=== PATIENT | male | born 1960 | race Caucasian/White ===

== ENCOUNTER 2016-11-04 06:13 | Day surgery (SDC) | payer OTHER ==
[2016-11-04 07:02] LABS: EOSINOPHIL 10.9 % (0-4.5); MCH 30.8 pg (25.7-33.7); MCHC 34.2 g/dl (32.0-35.9); MEAN PLT VOLUME 9.4 fl (7.5-11.1); NEUTROPHILS 34.7 % (42.8-82.8); PLATELET COUNT 155 K/MM3 (134-434); RDW 12.7 % (11.9-15.9); WHITE BLOOD COUNT 6.1 K/mm3 (4.0-10.0)
[2016-11-04] MEDS ORDERED: SUCCINYLCHOLINE CHLORIDE 200 MG/10 ML VIAL ONE (07:53)
[2016-11-04] MEDS ORDERED: MIDAZOLAM HCL 2 MG/2 ML SINGLE DOSE VIAL ONE (07:53)
[2016-11-04] MEDS ORDERED: PROPOFOL 20 ML ONE (08:43)
[2016-11-04] MEDS ORDERED: LIDOCAINE HCL/PF 2% SDV 5ML VIAL ONE (08:44)
[2016-11-04] MEDS ORDERED: ceFAZolin SODIUM 1 GM VIAL ONE (09:02)
[2016-11-04] MEDS ORDERED: GENTAMICIN SO4 80 MG/2 ML VIAL ONE (09:03)
--- NOTE | 2016-11-04 09:44 | OP ---
Operative Note - Note: Operative Date: 11/04/16 Pre-Operative Diagnosis: bladder tumor Operation: transurethral resection of bladder tumor and transurethral vaporization of bladder tumor Findings: tumor and dyspastic area greater than [id number] area Post-Operative Diagnosis: Same as Pre-op Surgeon: Duong Kirkpatrick Anesthesia: General Specimens Removed: bladder tumor Estimated Blood Loss (mls): 10 Drains & Tubes with Location: [address] Operative Report Dictated: Yes
[2016-11-04] MEDS ORDERED: PROMETHAZINE HCL 25 MG/1 ML VIAL IVPUSH PRN (09:58)
[2016-11-04] MEDS ORDERED: oxyCODONE HCL 5 MG TABLET PO PRN (09:58)
[2016-11-04] MEDS ORDERED: ONDANSETRON 4 MG/2 ML VIAL IVPUSH PRN (09:58)
[2016-11-04] MEDS ORDERED: LACTATED RINGERS SOLUTION 1,000 ML IV SCH (10:00)
[2016-11-04] MEDS ORDERED: hydrALAZINE HCL 20 MG/ML VIAL ONE (10:37)
[2016-11-04] MEDS ORDERED: hydrALAZINE HCL 20 MG/ML VIAL IVPUSH ONE (11:07)
[2016-11-04 11:48] VITALS: TEMP 97.8
[2016-11-04 13:47] VITALS: BP 138/84; PULSE 84
--- NOTE | 2016-11-04 22:54 | OP ---
DATE OF OPERATION: 11/04/2016 PREOPERATIVE DIAGNOSIS: Bladder tumor. POSTOPERATIVE DIAGNOSIS: Bladder tumor. PROCEDURE: Transurethral resection and vaporization of bladder tumor. ATTENDING SURGEON: Aspen Kirkpatrick M.D. ANESTHESIA: General. DESCRIPTION OF PROCEDURE: The patient is a very pleasant 55-year-old gentleman who presented with gross hematuria in the office setting. Cystoscopy at that time showed a bulky bladder tumor involving the posterior wall and left lateral wall of the bladder. The measurements of the tumor were 10 x 10 cm. Significant dysplasia was noted surrounding the primary tumor. The patient was informed of the risks and benefits of the procedure. The patient was given Ancef and gentamicin preoperatively for surgical prophylaxis. Patient was also given general anesthesia and placed in dorsal lithotomy position. He was prepped and draped in the usual sterile manner. Cystoscopy revealed the tumor as described on initial presentation. Resection of the bladder tumor was performed with the resection to the level of the muscle layer of the bladder. At this point, an obturator reflex was noted. It was decided to vaporize the residual tumor and dysplasia surrounding the tumor. Vaporization utilizing the bipolar system was performed. Vaporization of the transitional cell layer to the level of the deep muscle was performed extending from the posterior bladder and the left lateral wall. The margins were above the left ureteral orifice to the dome of the bladder distally and proximally involving the lateral wall to the dome and the posterior wall to the midline. Excellent hemostasis was obtained. The area involved was roughly 10 x 10 cm. No complications noted. The patient tolerated the procedure very well. The abdomen was soft at the end of the procedure. There was no indication of perforation of the bladder. All bladder tumor fragments were evacuated utilizing the . The patient tolerated the procedure very well. DISPOSITION: Disposition of the patient to the recovery room with 24 Polish catheter left in straight drainage. Patient will be observed for possible discharge home. ASPEN BURKS M.D. /[id number]
--- NOTE | 2016-11-06 11:21 | PATH ---
Surgical Pathology Report Patient Name: TASNEEM CODY [facility]. Rec. 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 LAMINA PROPRIA INVASION: NOT IDENTIFIED. MUSCULARIS PROPRIA: NOT PRESENT. CARCINOMA IN SITU (CIS): NOT IDENTIFIED. Electronically Signed Riley Mosleey M.D. Gross Description Received in formalin labeled "bladder tumor" is a 2.0 x 1.2 x 0.3 cm aggregate of pink-caldwell soft tissue fragments. The formalin is filtered and the specimen is entirely submitted in one cassette. /11/04/2016 saudi11/04/2016
== END 2016-11-04 13:10 | disposition home or self-care (01) ==
LOC: JASU-SURG 06:13
PROVIDERS: ATTEND Urology
PROC: 0TBB8ZX Excision of Bladder, Via Natural or Artificial Opening Endoscopic, Diagnostic (ICD-10-PCS; principal; 2016-11-04 08:00)
DX: C67.9 Malignant neoplasm of bladder, unspecified (principal)
CPT/HCPCS: 36415; 85025; 88307-TC; 94760

== ENCOUNTER → 2016-11-04 | Emergency (ER) | payer OTHER ==
[~2016-11-04] MED LIST: IBUPROFEN 600 MG TABLET (FP) PO ONE; SODIUM CHLORIDE 1,000 ML IV STA
[2016-11-04 13:51] VITALS: TEMP 97.5; BMI 29.5
--- NOTE | 2016-11-04 13:53 | PDOC ---
History of Present Illness - General History Source: Patient Exam Limitations: No Limitations - History of Present Illness Initial Comments: 11/04/16 14:41 The patient is a 55 year old male, with a significant past medical history of bladder CA, not on chemotherapy, who presents to the emergency department after a rapid response was called after he was leaving the hospital today. The patient while in the hospital underwent an elective TURP procedure today by his urologist. The patient was in a wheelchair was The patient denies chest pain, shortness of breath, headache and dizziness. Denies fever, chills, nausea, vomit, diarrhea and constipation. Allergies: Shellfish Past surgical history: None Social history: Marijuana use. No alcohol or drug use reported Urologist - Dr. Lopez. The patient was wheelchair to his car and outdoors as he stood up, he felt lightheaded and dizzy and nearly syncopized. <Rigo Ji - Last Filed: 11/04/16 14:48> - General History Source: Patient Exam Limitations: No Limitations <Heath Mcdermott - Last Filed: 11/04/16 14:51> - General Stated Complaint: RAPID RESPONSE Time Seen by Provider: 11/04/16 13:29 Past History <Rigo Ji - Last Filed: 11/04/16 14:48> - Past Medical History Anemia: No Asthma: No Cancer: Yes (Bladder) Cardiac Disorders: No CVA: No COPD: No CHF: No Dementia: No Diabetes: No GI Disorders: No Disorders: No HTN: No Hypercholesterolemia: No Liver Disease: No Seizures: No Thyroid Disease: No - Surgical History Abdominal Surgery: No Appendectomy: No Cardiac Surgery: No Cholecystectomy: No Lung Surgery: No Neurologic Surgery: No - Immunization History Immunization Up to Date: Yes - Psycho/Social/Smoking Cessation Hx Suicidal Ideation: No Smoking History: Never smoked Hx Alcohol Use: No Drug/Substance Use Hx: No Substance Use Type: Marijuana Hx Substance Use Treatment: No ("POT RARELY) <Heath Mcdermott - Last Filed: 11/04/16 14:51> - Past Medical History Allergies/Adverse Reactions: Allergies Allergy/AdvReac Type Severity Reaction Status Date / Time shellfish derived Allergy Verified 11/04/16 10:02 Home Medications: Ambulatory Orders NK [No Known Home Medication] 10/31/16 Review of Systems - Review of Systems Able to Perform ROS?: Yes Comments:: 11/04/16 14:45 GENERAL/CONSTITUTIONAL: No fever or chills. No weakness. HEAD, EYES, EARS, NOSE AND THROAT: No change in vision. No ear pain or discharge. No sore throat. CARDIOVASCULAR: No chest pain or shortness of breath RESPIRATORY: No cough, wheezing, or hemoptysis. GASTROINTESTINAL: No nausea, vomiting, diarrhea or constipation. GENITOURINARY: No dysuria, frequency, or change in urination. MUSCULOSKELETAL: No joint or muscle swelling or pain. No neck or back pain. SKIN: No rash NEUROLOGIC: (+) No headache, vertigo, loss of consciousness, or change in strength/sensation. ENDOCRINE: No increased thirst. No abnormal weight change HEMATOLOGIC/LYMPHATIC: No anemia, easy bleeding, or history of blood clots. ALLERGIC/IMMUNOLOGIC: No hives or skin allergy. <Rigo Ji - Last Filed: 11/04/16 14:48> *Physical Exam - Vital Signs Last Vital Signs Temp Pulse Resp BP Pulse Ox 97.5 F L 78 20 124/84 100 11/04/16 13:48 11/04/16 14:20 11/04/16 14:20 11/04/16 14:20 11/04/16 14:20 - Physical Exam Comments: 11/04/16 14:48 GENERAL: Awake, alert, and fully oriented, in no acute distress HEAD: No signs of trauma, normocephalic, atraumatic EYES: PERRLA, EOMI, sclera anicteric, conjunctiva clear ENT: Auricles normal inspection, hearing grossly normal, nares patent, oropharynx clear without exudates. Moist mucosa NECK: Normal ROM, supple, no lymphadenopathy, JVD, or masses LUNGS: No distress, speaks full sentences, clear to auscultation bilaterally HEART: Regular rate and rhythm, normal S1 and S2, no murmurs, rubs or gallops, peripheral pulses normal and equal bilaterally. ABDOMEN: Soft, nontender, normoactive bowel sounds. No guarding, no rebound. No masses EXTREMITIES: Normal inspection, Normal range of motion, no edema. No clubbing or cyanosis. NEUROLOGICAL: Cranial nerves II through XII grossly intact. Normal speech, normal gait, no focal sensorimotor deficits SKIN: Warm, Dry, normal turgor, no rashes or lesions noted. <Rigo Ji - Last Filed: 11/04/16 14:48> Heart Score/ECG Review #1 ECG reviewed & interpreted by me at: 13:45 11/04/16 14:30 NSR 78, TWI III, avF, no std/jeff, normal axis, normal intervals, QTC 440 msec <Heath Mcdermott - Last Filed: 11/04/16 14:51> ED Treatment Course - LABORATORY CBC & Chemistry Diagram: 11/04/16 13:39 11/04/16 13:39 - ADDITIONAL ORDERS Additional order review: Laboratory Results 11/04/16 13:39 Sodium 141 Potassium 3.7 Chloride 105 Carbon Dioxide 27 Anion Gap 9 BUN 9 Creatinine 1.0 Creat Clearance w eGFR > 60 Random Glucose 122 H Calcium 8.6 Total Bilirubin 0.6 AST 16 ALT 20 Alkaline Phosphatase 79 Creatine Kinase 140 Troponin I < 0.02 Total Protein 7.1 Albumin 4.0 11/04/16 13:39 RBC 4.88 MCV 89.7 MCHC 34.2 RDW 12.5 MPV 9.1 Neutrophils % 65.5 D Lymphocytes % 23.0 D Monocytes % 8.9 Eosinophils % 1.8 D Basophils % 0.8 - Medications Given in the ED: ED Medications Discontinued Medications Generic Name Dose Route Start Last Admin Trade Name Freq PRN Reason Stop Dose Admin Sodium Chloride 1,000 mls @ 1,000 mls/hr 11/04/16 13:31 11/04/16 13:38 Normal Saline - IV 11/04/16 14:30 1,000 mls/hr ASDIR STA Administration <Rigo Ji - Last Filed: 11/04/16 14:48> - LABORATORY CBC & Chemistry Diagram: 11/04/16 13:39 11/04/16 13:39 <Heath Mcdermott - Last Filed: 11/04/16 14:51> Medical Decision Making - Medical Decision Making 11/04/16 13:49 A portion of this note was documented by scribe services under my direction. I have reviewed the details of the note, within reason, and agree with the documentation with the following case summary and management plan written by me. Patient treated in the ED. Nursing notes are reviewed and incorporated into the medical decision-making. Vital signs reviewed. Peripheral IV access obtained by the nurse, laboratory studies are drawn and sent, reviewed and interpreted by myself. Vital Signs Temp Pulse Resp BP Pulse Ox 97.5 F L 78 20 124/84 100 11/04/16 13:48 11/04/16 14:20 11/04/16 14:20 11/04/16 14:20 11/04/16 14:20 55-year-old male with history of bladder CA, not on chemotherapy brought in as a rapid response. The patient underwent elective TURP procedure today by Dr. Deborah Solomon. The patient had a transient episode of hypertension which was given reportedly IV hydralazine and improved. Patient was placed in PACU and patient felt otherwise well. He was observed for approximately an hour and half to 2 hours. The patient was wheelchair to his car and outdoors as he stood up, he felt lightheaded and dizzy and nearly syncopized. Denies syncope, chest pain, short of breath. I suspect patient likely had either vasovagal or orthostatic near syncope. EKG is reassuring. We'll check labs give IV fluids. If workup is negative, will discharge home. Patient's doctor Kaya was made aware. 11/04/16 14:49 CBC, BMP 11/04/16 13:39 11/04/16 13:39 CMP Sodium 141 mmol/L (136-145) 11/04/16 13:39 Potassium 3.7 mmol/L (3.5-5.1) 11/04/16 13:39 Chloride 105 mmol/L (98-107) 11/04/16 13:39 Carbon Dioxide 27 mmol/L (21-32) 11/04/16 13:39 Anion Gap 9 (8-16) 11/04/16 13:39 BUN 9 mg/dL (7-18) 11/04/16 13:39 Creatinine 1.0 mg/dL (0.7-1.3) 11/04/16 13:39 Creat Clearance w eGFR > 60 (>60) 11/04/16 13:39 Random Glucose 122 mg/dL (74-106) H 11/04/16 13:39 Calcium 8.6 mg/dL (8.5-10.1) 11/04/16 13:39 Total Bilirubin 0.6 mg/dL (0.2-1.0) 11/04/16 13:39 AST 16 U/L (15-37) 11/04/16 13:39 ALT 20 U/L (12-78) 11/04/16 13:39 Alkaline Phosphatase 79 U/L (45-117) 11/04/16 13:39 Creatine Kinase 140 IU/L (39-308) 11/04/16 13:39 Troponin I < 0.02 ng/ml (0.00-0.05) 11/04/16 13:39 Total Protein 7.1 g/dl (6.4-8.2) 11/04/16 13:39 Albumin 4.0 g/dl (3.4-5.0) 11/04/16 13:39 Patient is observed and feels otherwise very well. Patient be taken home by family. I discussed the physical exam findings, ancillary test results and final diagnoses with the patient. I answered all of the patient's questions. The patient was satisfied with the care received and felt comfortable with the discharge plan and treatment plan. The patient will call their primary care physician within 24 hours to arrange follow-up and will return to the Emergency Department with any new, persistant or worsening symptoms. <Heath Mcdermott - Last Filed: 11/04/16 14:51> *DC/Admit/Observation/Transfer - Attestations Scribe Attestion: 11/04/16 14:48 Documentation prepared by Rigo Ji, acting as medical massage therapist for Heath Mcdermott MD <Rigo Ji - Last Filed: 11/04/16 14:48> - Discharge Dispostion Admit: No <Heath Mcdermott - Last Filed: 11/04/16 14:51> Diagnosis at time of Disposition: Near syncope - Discharge Dispostion Disposition: HOME Condition at time of disposition: Good - Patient Instructions Additional Instructions: Drink plenty of fluids and rest. Your workup is unremarkable. Follow up with your doctor.
[2016-11-04 13:57] LABS: BASOPHIL 0.8 % (0-2.0); EOSINOPHIL 1.8 % (0-4.5); MCH 30.7 pg (25.7-33.7); MCHC 34.2 g/dl (32.0-35.9); MEAN CELL VOLUME 89.7 fl (80-96); MEAN PLT VOLUME 9.1 fl (7.5-11.1); NEUTROPHILS 65.5 % (42.8-82.8); PLATELET COUNT 162 K/MM3 (134-434); RDW 12.5 % (11.9-15.9)
--- NOTE | 2016-11-04 13:58 | EKG ---
Test Reason : Blood Pressure : / mmHG Vent. Rate : 078 BPM Atrial Rate : 078 BPM P-R Int : 140 ms QRS Dur : 092 ms QT Int : 386 ms P-R-T Axes : 029 026 004 degrees QTc Int : 440 ms NORMAL SINUS RHYTHM NORMAL ECG NO PREVIOUS ECGS AVAILABLE Confirmed by DARIEN VILLARREAL MD ([id number]) on 11/04/2016 1:57:38 PM Referred By: Confirmed By:DARIEN VILLARREAL MD
[2016-11-04 14:32] LABS: ANION GAP 9 (8-16); BILIRUBIN,TOTAL 0.6 mg/dL (0.2-1.0); CALCIUM 8.6 mg/dL (8.5-10.1); CO2 27 mmol/L (21-32); GLUCOSE,RANDOM 122 mg/dL (74-106); SGOT/AST 16 U/L (15-37); SGPT/ALT 20 U/L (12-78); TOT PROT 7.1 g/dl (6.4-8.2)
[2016-11-04 14:35] LABS: ALK PHOS 79 U/L (45-117); TROPONIN I < 0.02 ng/ml (0.00-0.05)
[2016-11-04 15:09] VITALS: BP 124/84; PULSE 78
== END | disposition home or self-care (01) ==
LOC: JER 13:24
PROC: 3E0337Z Introduction of Electrolytic and Water Balance Substance into Peripheral Vein, Percutaneous Approach (ICD-10-PCS; principal; 2016-11-04)
DX: R55 Syncope and collapse (principal); Z98.890 Other specified postprocedural states; Z85.51 Personal history of malignant neoplasm of bladder
CPT/HCPCS: 36415; 80053; 82550; 84484; 85025; 93005; 93010; 99283-25